=== PATIENT | male | born 1960 | race Caucasian/White ===

== ENCOUNTER 2020-11-04 18:29 | Outpatient (REF) | payer BC, SELFPAY | END 2020-11-04 18:30 | disposition home or self-care (01) | LOC: NCHCN 18:29 | PROVIDERS: PCP Family Medicine; Visit Provider Nurse Practitioner Gerontology | DX: N39.0 Urinary tract infection, site not specified (principal) | CPT/HCPCS: 87077; 87086 ==

== ENCOUNTER 2021-03-20 02:23 | Outpatient (CLI) | payer BC, SELFPAY ==
[2021-03-20 13:15] LABS: Source Nasal/Nares
[2021-03-20 22:12] LABS: COVID-19 PCR Negative (Negative)
== END 2021-03-20 02:24 | disposition home or self-care (01) ==
LOC: LBO 02:23
PROVIDERS: PCP Family Medicine; Visit Provider Urology
DX: Z11.52 Encounter for screening for COVID-19 (principal)
CPT/HCPCS: 87635

== ENCOUNTER 2021-03-23 06:13 | Observation (INO) | payer BC, SELFPAY ==
[2021-03-23] VITALS (13 sets, daily range): BP systolic 76–130; BP diastolic 31–61; PULSE 37–54; RESP 11–18; TEMP 35.2–36.7; O2SAT 96–100; BMI 27.0
--- NOTE | 2021-03-23 06:47 | W.ANESPRE ---
General Info Date of Service Date Performed: 03/23/21 Height: 5 ft 11 in Weight: 88 kg Body Mass Index (BMI): 27.0 Surgical Procedure: Operation Date: 03/23/21 07:40 Proposed Procedures Side Surgeon p Transurethral Resection Prostate Jude Balderas MD Meds Allergies and Home Medications Allergies Allergy/AdvReac Type Severity Reaction Status Date / Time No Known Allergies Allergy Unverified 03/23/21 07:08 Home Medication Medication Instructions Recorded atorvastatin 20 mg tablet 20 mg PO DAILY 09/30/20 finasteride 5 mg tablet 5 mg PO DAILY 09/30/20 tamsulosin 0.4 mg capsule 0.4 mg PO QHS #30 cap 10/16/20 Current Visit Medications: Current Medications Generic Name Dose Route Start Last Admin Trade Name Freq PRN Reason Stop Dose Admin Ringer's Solution 1,000 mls @ 80 mls/hr 03/23/21 06:00 IV 04/19/21 23:59 INFUSION SINTIA Cefazolin Sodium/Dextrose 2 gm in 50 mls @ 100 mls/hr 03/23/21 06:00 Ancef Duplex IVPB 03/23/21 16:00 PREOP SINTIA IV Miscellaneous Supplies 1 each 03/23/21 06:00 Iv Access IV 04/19/21 23:59 DIRECTED SINTIA Sodium Chloride 0 ml 03/23/21 06:00 Normal Saline Flush 10 Ml Syr IV 04/19/21 23:59 PRN PRN Sodium Chloride 0 ml 03/23/21 06:00 Normal Saline 10 Ml Vial IJ 04/19/21 23:59 DIRECTED PRN Sterile Water 0 ml 03/23/21 06:00 Water,Injection,Sterile 10 Ml Vial IJ 04/19/21 23:59 DIRECTED PRN PFSH Medical History Active Problem List (Updated 03/23/21 @ 06:58 by Jude Balderas MD) Urinary retention (Acute) Medical History (Updated 03/23/21 @ 06:58 by Jude Balderas MD) Anemia Bladder outlet obstruction Elevated PSA Gross hematuria HLD (hyperlipidemia) Hypertension Neurocardiogenic syncope Pt. states this was related to his urine retentikon Renal insufficiency Retinal hemorrhage Stasis dermatitis Weight loss Surgical History Surgical History (Updated 03/23/21 @ 06:23 by Earnestine Marshall) Hx of tonsillectomy Tobacco Smoking/Tobacco Use Status: Never Substance Use Substance use: Never Vital Signs and Lab Results Vital Signs Most Recent Vital Signs in EMR: Most Recent Vital Signs Temp Pulse Resp BP Pulse Ox 36.3 C L 48 L 16 130/48 L 99 03/23/21 06:25 03/23/21 06:25 03/23/21 06:25 03/23/21 06:25 03/23/21 06:25 Lab Results Blood Type / Crossmatch: No Data to Display Complete Blood Count: No Data to Display Complete Metabolic Panel: No Data to Display Liver Function Panel: No Data to Display Coagulation Panel: No Data to Display Cardiac Panel: No Data to Display Arterial Blood Gas: No Data to Display Venous Blood Gas: No Data to Display Pancreas Panel: No Data to Display Thyroid Panel: No Data to Display Infectious Disease: Coronavirus (COVID-19)(PCR) Negative (Negative) 03/20/21 10:50 03/20/21 Coronavirus 2019 Source Nasal/Nares 03/20/21 10:50 03/20/21 Blood Cultures: No Data to Display Toxicology Panel: No Data to Display Anesthesia Assessment and Plan Anesthesia History Personal History: No History of Anesthesia Complications Family History: No Family History of Anesthesia Complications Exercise Tolerance Exercise Tolerance: Metabolic Equivalents<4 Pertinent Negatives Pertinent Negatives: No Symptoms of GERD, No Major Cardiovascular Symptoms or Complaints, No Major Pulmonary Symptoms or Complaints and No History of CVA/TIA Cardiac & Pulmonary Exam Cardiac Exam: Normal S1/S2 Heart Sounds Pulmonary Exam: Clear Bilateral Breath Sounds Implantable Cardiac Device Does patient have a Pacemaker or an ICD?: No Airway Exam Known Difficult Airway: No Mallampati Class: 2 Mouth Opening: Normal (> 3cm) Thyromental Distance: Greater than 3 cm Neck Range of Motion: Full ROM Neck Circumference: Normal Teeth Condition: Normal Dentition ASA Classification ASA Score: ASA 2 Emergency Case?: No NPO Status NPO Status: NPO Clears >2 hours, Solids >8 hours Anesthesia Plan Resuscitation Status: Full Code Anesthesia Technique: General Anesthesia Airway Planned: LMA Monitors Used: Standard Monitors
--- NOTE | 2021-03-23 06:56 | HPE_ITS ---
Date of service: 03/23/21 Time of Service: 06:56 Assessment and Plan Assessment and plan (1) Urinary retention: Status: Acute Assessment and plan: Based on his urodynamic study, his bladder does have some contractility. I am not sure if it is enough contract allow him to void on his own or if he will need to continue with intermittent catheterization. The patient would like to proceed with transurethral resection of the prostate with the hope that he would be able to move away from intermittent catheterization. We discussed potential complications including bleeding/clot retention, infection, urethral injury/stricture and continued need for CIC. History of Present Illness History of Present Illness Chief Complaint: Urinary retention Narrative: This is a 60-year-old gentleman who is referred by Dr. Smalls. The patient was initially identified as having a slightly elevated PSA level. He was then referred to Dr. Miller in [place], [place]. His digital rectal exam demonstrated a diffusely enlarged prostate with no nodules. He did not have a prostate biopsy at that time. He was started on finasteride. He was then found to have an elevated serum creatinine and a palpable abdominal mass. On renal ultrasound, he had bilateral hydronephrosis and over 3 L of urine in his bladder. He was started on intermittent catheterization with a goal of keeping his volumes at 500 cc or less. At first, he was unable to sense that his bladder was full, but he now has some bladder sensation before he catheterizes. 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 He has no history of neurologic injuries. He has no previous history of UTIs, pyelonephritis, prostatitis or epididymitis. He has not had any prior urologic instrumentation or surgeries. He has no known family history of prostate cancer. He had a prostate MRI that showed no areas of concern for clinically significant prostate cancer. His serum creatinine has stabilized around 2. Review of Systems Narrative: No fevers or chills No vision change or dysphasia No diabetes or thyroid No shortness of breath, cough or hemoptysis No chest pain or palpitations No nausea, vomiting, hepatitis, ulcers, jaundice, diarrhea or constipation No seizures, strokes or peripheral neuropathy No bleeding disorders or anemia No gout or arthralgia [facility] Active Problem List (Updated 03/23/21 @ 06:58 by Jude Balderas MD) Urinary retention (Acute) Medical History (Updated 03/23/21 @ 06:58 by Jude Balderas MD) Anemia Bladder outlet obstruction Elevated PSA Gross hematuria HLD (hyperlipidemia) Hypertension Neurocardiogenic syncope Pt. states this was related to his urine retentikon Renal insufficiency Retinal hemorrhage Stasis dermatitis Weight loss Surgical History (Updated 03/23/21 @ 06:23 by Earnestine Marshall) Hx of tonsillectomy Social History Smoking/Tobacco Use Status: Never Smoking risk assessment performed?: Yes Drug use: Never Meds Allergies and Home Medications Allergies Allergy/AdvReac Type Severity Reaction Status Date / Time No Known Allergies Allergy Unverified 03/23/21 07:08 Home Medications Medication Instructions Recorded Confirmed Type atorvastatin 20 mg tablet 20 mg PO DAILY 09/30/20 03/23/21 History finasteride 5 mg tablet 5 mg PO DAILY 09/30/20 03/23/21 History tamsulosin 0.4 mg capsule 0.4 mg PO QHS #30 cap 10/16/20 03/23/21 Rx Exam Const General: cooperative, comfortable and no acute distress Neck Neck: supple Resp Effort & Inspection: normal respiratory effort Auscultation: clear to auscultation bilaterally Cardio Rate: regular rate Rhythm: regular rhythm GI Palpation: soft, no guarding and no masses Neuro General: patient alert, patient awake and patient oriented x3 Results Last Vital Signs Temp 36.3 C L 03/23/21 06:25 Pulse 48 L 03/23/21 06:25 Resp 16 03/23/21 06:25 BP 130/48 L 03/23/21 06:25 Pulse Ox 99 03/23/21 06:25 PAWSS Have you Been Recently Intoxicated or Drunk Within the Last 30 days?: No Have you Ever Experienced Previous Episodes of Alcohol Withdrawal?: No Have you ever Experienced Withdrawal Seizures?: No Have you ever Experienced Delirium Tremens(DT)s?: No Have you ever undergone Alcohol Rehabilitation Treatment (i.e, inpt ot outpatient treatment programs)?: No Have you ever Experienced Blackouts?: No Have you ever Combined Alcohol with other Downers within the last 90 days?: No Have you ever Combined Alcohol with any other Substance of Abuse during the last 90 days?: No Positive Blood Alcohol level on Presentation? [PCS.BAL]: No Evidence of Increased Autonomic Activity (i.e. HR>120, tremor, sweating, agitation, nausea)?: No Result: 0
[2021-03-23] MEDS: Lactated Ringers 1,000 ML 80 ML IV ×2 (07:03→10:05)
[2021-03-23] MEDS: ceFAZolin 2 GM/50 ML BAG IVPB (07:39)
[2021-03-23] MEDS: Lidocaine 2% Jelly 6 ML SYR (07:59)
--- NOTE | 2021-03-23 09:08 | PROST_PTH ---
PATIENT: Sebastian Echevarria LOC: U#:[id number] AGE/SX: 60/M ROOM: [id number] RE03/23/[address]: Jude Balderas MD : 1960 BED: A DIS: 03/24/2021 SPEC #: [id number] RECD: 03/23/21 12:27 STATUS: CHARMAINE REQ #: [id number] CLAUDY: 03/23/21 09:[address]: Jude Balderas DEPT: Surgical Specimen RECD BY: Josee Mcneil ENTERED: 03/23/21 12:28 SP TYPE: PROST OTHR DR: Andrea Smalls Tissues: 1 - PROSTATE CURRETTINGS Procedures: GROSS AND MICRO LEVEL 4 Comments: [id number]
--- NOTE | 2021-03-23 09:31 | ROE_ITS ---
Date of service: 03/23/21 Time of Service: 09:31 Operative Note Operative Note DATE OF PROCEDURE: 03/23/21 PRE-OP DIAGNOSIS: Urinary retention POST-OP DIAGNOSIS: same PROCEDURE: cystoscopy, transurethral resection of prostate with bipolar cautery ANESTHESIA TYPE: Local By Surgeon and General LMA/ETT Refer to Anesthesia Record ESTIMATED BLOOD LOSS: 300 PATHOLOGY: other (prostate chips) COMPLICATIONS: None Patient was transported to: PACU Patient's condition: stable Implants: 22 Bahraini irrigating rae catheter with 30 cc sterile water in balloon Indications: This is a 60-year-old gentleman who initially presented with an elevated serum creatinine and bladder distention. He had a Rae catheter placed and over 3 L of urine was obtained. He has been performing intermittent catheterization in order to keep his catheterized volumes of 500 cc or less. He now has some sensation of when his bladder fills and on urodynamic studies, he was able to generate a detrusor contraction. He presents for transurethral resection of the prostate in the hopes that he would be able to void on his own. Findings: Lateral lobe prostate enlargement with no significant median lobe Procedure Description: The patient was brought to the operating room on 03/23/2021. After successful induction of general anesthesia, he was placed in the dorsal lithotomy position. He was given preoperative IV antibiotics. Genitalia was prepped and draped. 2% Xylocaine jelly was instilled into the urethra. A 24 Bahraini resectoscope sheath was passed through the urethra into the bladder. We used a visual obturator and a 30 degree lens to inspect the urethral mucosa. The pendulous, bulbar and membranous urethra's appeared normal with no strictures. The prostatic urethra showed lateral lobe enlargement and quite a bit of anterior tissue but no significant median lobe. The bladder neck was entered and the bladder mucosa was inspected. The bladder was trabeculated with a few small diverticuli, but no papillary or nodular lesions were seen. Both ureteral orifices were identified. No blood was seen coming from either side. I then used an [employer] resectoscope and bipolar cautery to perform transurethral resection of the prostate from the bladder neck out to the verumontanum. The depth of the resection was down to the prostatic capsule. Toward the completion of the procedure, we switched over to the vaporization button and cauterize the tissue down to the capsule. All resected tissue was evacuated and sent to pathology for permanent section. The bladder was filled with irrigant. The resectoscope was removed. A 22 Frenc h hematuria catheter was passed through the urethra into the bladder. The catheter balloon was inflated with 30 cc of sterile water. Traction was placed on the catheter and hand irrigation was performed until the irrigant became clear. A belladonna and opium suppository was placed rectally. The patient was then taken to the recovery room with continuous bladder irrigation maintained. He tolerated this procedure well with no complications.
[2021-03-23] MEDS: Lactated Ringers 1,000 ML 125 ML IV ×2 (12:04→17:44)
[2021-03-23] MEDS: ceFAZolin 1 GM/50 ML BAG IVPB ×2 (12:16→20:07)
--- NOTE | 2021-03-23 14:20 | W.ANESPOSTOP ---
Postoperative Evaluation Date, Time and Location Date Performed: 03/23/21 Time Performed: 14:22 Patient Location: Med/Surg Vital Signs Most Recent Imported Vital Signs: Most Recent Vital Signs Temp Pulse Resp BP Pulse Ox 35.9 C L 39 L 16 104/61 98 03/23/21 11:30 03/23/21 11:30 03/23/21 11:30 03/23/21 11:30 03/23/21 11:30 Pain Score Most Recent Pain Score: Most Recent Pain Score Pain Level 0 03/23/21 11:30 Assessment Mental Status: Awake (Alert & Oriented to Patient Baseline) Airway and Respiratory Function: Patent airway with normal (patient baseline) respiratory exam Cardiovascular Function: Hemodynamically Stable Hydration Status: Adequately Hydrated Nausea & Vomiting: No Nausea or Vomiting Pain: Pt. Denies Any Pain Peripheral Nerve Block: Patient did not receive a nerve block
[2021-03-23] MEDS: Ondansetron 4 MG/2 ML VIAL IVP (20:13)
[2021-03-23] MEDS: traMADol 50 MG TAB PO (20:44)
[2021-03-23 21:11] LABS: Absolute Basophil Count 0.03 10^3/uL (0.0-0.2); Absolute Eosinophil Count 0.03 10^3/uL (0.0-0.7); Absolute Monocyte Count 0.61 10^3/uL (0.1-0.8); Absolute Neutrophil Count 13.76 10^3/uL (1.2-6.7); Basophils % 0.2; Eosinophils % 0.2; HGB 12.4 g/dL (13.5-17.5); Immature Grans % 0.6; Lymphocytes % 11.9; MCH 28.5 pg (27.0-33.0); MCHC 32.6 % (32.0-36.0); MCV 87.4 fL (80-95); MPV 9.8 fL (8.0-11.0); Monocytes % 3.7; Neutrophils % 83.4; Nucleated RBC 0 %; Platelet Count 237 10^3/uL (130-400); RBC 4.35 10^6/uL (4.36-5.78); RDW 12.7 % (11.8-14.1); RDW-SD 40.5 fL
[2021-03-23 21:13] LABS: Absolute Lymphocyte Count 1.96 10^3/uL (1.2-3.4)
[2021-03-23] MEDS: Tamsulosin 0.4 MG CAPCR PO (22:36)
[2021-03-24] MEDS: Lactated Ringers 1,000 ML 125 ML IV (02:21)
[2021-03-24] MEDS: ceFAZolin 1 GM/50 ML BAG IVPB (04:01)
[2021-03-24 07:16] LABS: HCT 32.4 % (40.0-50.0); MCH 29.3 pg (27.0-33.0); MCV 86.2 fL (80-95); MPV 10.1 fL (8.0-11.0); Platelet Count 191 10^3/uL (130-400); RBC 3.76 10^6/uL (4.36-5.78); RDW 12.8 % (11.8-14.1); WBC 17.34 10^3/uL (4.4-10.8)
[2021-03-24 07:24] LABS: Anion Gap 9.2 mmol/L (3-11); BUN 37 mg/dL (7-18); CO2 24.8 mmol/L (21.0-32.0); CREATININE 2.2 mg/dL (0.70-1.30); Chloride 102 mmol/L (98-107); Estimated GFR 30.79 (mL/min/1.73m2); Glucose 156 mg/dL (74-106); Potassium 4.7 mmol/L (3.5-5.1); Sodium 136 mmol/L (136-145)
[2021-03-24] MEDS: Finasteride 5 MG TAB PO (07:52)
[2021-03-24] MEDS: Atorvastatin 20 MG TAB PO (07:52)
--- NOTE | 2021-03-24 07:53 | PGE_ITS ---
Date of Service Date of service: 03/24/21 Time of Service: 07:53 Assessment and Plan Assessment and plan (1) Urinary retention: Status: Acute Assessment and plan: We will attempt to stop his bladder irrigation and have him get up and around with his catheter still in place. If the urine outflow remains transparent, he would likely be able to go home later today. If the urine is not transparent, we will need to restart his bladder irrigation for 1 additional day. Subjective Subjective Interval history since last seen: He one episode of catheter occlusion last evening which seemed to be associated with a vasovagal reaction. His hemoglobin at that time was 12 which is his baseline. He has been able to tolerate oral fluid and food with no nausea or vomiting. He has no fevers or chills Exam Narrative Exam Narrative: He looks comfortable. His vital signs are documented elsewhere. I hand irrigated his catheter and obtained many blood clots. I restarted his bladder irrigation and it is now running clear He is awake and alert His morning labs show a stable hemoglobin and a stable serum creatinine. Objective Last Vital Signs Temp 36.7 C 03/23/21 23:09 Pulse 53 L 03/23/21 23:09 Resp 18 03/23/21 23:09 BP 94/60 L 03/23/21 23:09 Pulse Ox 97 03/23/21 23:09 Laboratory Results - last 24 hr 03/23/21 03/23/21 03/24/21 09:00 21:00 06:47 WBC 16.50 H RBC 4.35 L Hgb 12.4 L Hct 38.0 L MCV 87.4 MCH 28.5 MCHC 32.6 RDW 12.7 Plt Count 237 MPV 9.8 Immature Gran % 0.6 Neutrophils % 83.4 Lymphocytes % 11.9 Monocytes % 3.7 Eosinophils % 0.2 Basophils % 0.2 Nucleated RBC % 0 Absolute Neutrophils 13.76 H Absolute Lymphocytes 1.96 Absolute Monocytes 0.61 Absolute Eosinophils 0.03 Absolute Basophils 0.03 Sodium 136 Potassium 4.7 Chloride 102 Carbon Dioxide 24.8 Anion Gap 9.2 BUN 37 H Creatinine 2.2 H Estimated GFR/1.73 m2 30.79 Glucose 156 H Calcium 8.0 L Patient ABO/Rh O Positive Antibody Screen NEGATIVE 03/24/21 06:47 WBC 17.34 H RBC 3.76 L Hgb 11.0 L Hct 32.4 L MCV 86.2 MCH 29.3 MCHC 34.0 RDW 12.8 Plt Count 191 MPV 10.1 Immature Gran % Neutrophils % Lymphocytes % Monocytes % Eosinophils % Basophils % Nucleated RBC % Absolute Neutrophils Absolute Lymphocytes Absolute Monocytes Absolute Eosinophils Absolute Basophils Sodium Potassium Chloride Carbon Dioxide Anion Gap BUN Creatinine Estimated GFR/1.73 m2 Glucose Calcium Patient ABO/Rh Antibody Screen PAWSS Have you Been Recently Intoxicated or Drunk Within the Last 30 days?: No Have you Ever Experienced Previous Episodes of Alcohol Withdrawal?: No Have you ever Experienced Withdrawal Seizures?: No Have you ever Experienced Delirium Tremens(DT)s?: No Have you ever undergone Alcohol Rehabilitation Treatment (i.e, inpt ot outpatient treatment programs)?: No Have you ever Experienced Blackouts?: No Have you ever Combined Alcohol with other Downers within the last 90 days?: No Have you ever Combined Alcohol with any other Substance of Abuse during the last 90 days?: No Positive Blood Alcohol level on Presentation? [PCS.BAL]: No Evidence of Increased Autonomic Activity (i.e. HR>120, tremor, sweating, agitat ion, nausea)?: No Result: 0
[2021-03-24 08:15] VITALS: BP 105/67; PULSE 57; RESP 18; TEMP 36; O2SAT 97
--- NOTE | 2021-03-24 08:55 | DSE_ITS ---
Date of service: 03/24/21 Time of Service: 12:33 DS: Diagnosis Discharge Diagnosis (1) Urinary retention: Status: Acute Discharge Plan Disposition Patient Disposition: HOME Condition: Stable Discharge Details Reason For Visit: Urinary Retention Admit Date/Time: 03/23/21 06:13 Admit Provider: Jude Balderas Attending Provider: Jude Balderas Primary Care Provider: Andrea Smalls Hospital Course Hospital Course: The patient was admitted to into the operating room on 03/23/2021. He underwent transurethral resection of the prostate. Overnight, he was maintained with continuous bladder irrigation. He did have an episode of catheter occlusion which resulted in a vasovagal reaction. On postoperative day #1, I was able to hand irrigate multiple blood clots in the catheter flowed freely. The patient has been instructed in hand irrigation techniques at home in case he develops a clot. By postoperative day #1, his vital signs were stable. His hemoglobin and serum creatinine were stable as well. He was having some orthostatic hypotension, so we discontinued his tamsulosin. Home Meds and New Rx's Prescriptions: New cephalexin 500 mg capsule 500 mg PO QHS Qty: 5 RF: 0 Discontinued tamsulosin 0.4 mg capsule 0.4 mg PO QHS Qty: 30 RF: 12 No Action finasteride 5 mg tablet 5 mg PO DAILY RF: 0 atorvastatin 20 mg tablet 20 mg PO DAILY RF: 0 Discharge Instructions Additional Instructions: Catheter to leg bag - catheter plug to irrigation port Followup 3 to 7 days for catheter removal additional F/U appt 2 weeks to review surgical pathology and to do bladder scan Instruct patient to hand irrigate rae on prn basis (please supply him with irrigation tray and irrigation fluid at time of discharge) Activity:: no lifting over 10 pounds Equipment/Supplies:: rae to leg bag Diet:: As Tolerated Discharge Orders Discharge Orders: Discharge Order (Routine); Ordered 03/24/21 Ordered By: Jude Balderas DS: Summary Time Spent with Patient providing and/or coordinating discharge services: Less than 30 minutes Status at Discharge Functional status at discharge: independent ambulation Overall status at discharge: patient is back to baseline Mental Status: mental status grossly normal Speech and Movement: speech and movement normal Mood: congruent mood Affect: normal affect Exam Psych Mental Status: mental status grossly normal Speech and Movement: speech and movement normal Mood: congruent mood Affect: normal affect DS: Data Vitals/I&O Vitals and I&O: Vital Signs Temperature 36.0 C L 03/24/21 08:15 Temperature Source Tympanic 03/24/21 08:15 Pulse 57 L 03/24/21 08:15 Pulse Rhythm Regular 03/24/21 07:20 Respiratory Rate 18 03/24/21 08:15 Respiratory Effort Non-Labored 03/24/21 07:20 Respiratory Depth Normal 03/24/21 07:20 Respiratory Pattern Normal 03/24/21 07:20 Blood Pressure 105/67 03/24/21 08:15 Pulse Oximetry 97 03/24/21 08:15 Respiratory End-tidal CO2 36 03/23/21 10:30 Oxygen Delivery Method Room Air 03/24/21 08:15 Oxygen Flow Rate 0 03/24/21 08:15 Pain Level 0 03/24/21 08:15 Comment 03/23/21 11:30 Intake & Output 03/23/21 03/23/21 03/24/21 11:59 23:59 11:59 Intake Total 828.667 / 9146.196 4059.333 / 5252.638 7925.75 / 1793.75 Output Total 300 / 300 Balance 528.667 / 6497.395 2215.333 / 5554.948 2416.75 / 1793.75 Weight 88 kg Intake: IV 808.667 / 1617.000 808.333 / 9470.686 3762.75 / 1793.75 Oral 20 / 260 240 / 260 Output: Estimated Blood Loss 300 / 300 Other: Urine Color Dark Red Dark Red [place] Urine Appearance Hematuria Hematuria Hematuria Clots Comment patient is stating that he has extreme pain and pressure, no flow noted even after hand irrigation, balloon as deflated catheter advanced and ba llon inflated. hand irrgation was done small clots retrieve.flow noted- [place] color. Patient reports that he just moved around, which caused the redness in the urine. Emesis Description None Data Completed and Pending Labs on day of discharge: Labs from last 24 hours 03/24/21 03/24/21 03/23/21 06:47 06:47 21:00 WBC 17.34 H RBC 3.76 L Hgb 11.0 L Hct 32.4 L MCV 86.2 MCH 29.3 MCHC 34.0 RDW 12.8 Plt Count 191 MPV 10.1 Immature Gran % Neutrophils % Lymphocytes % Monocytes % Eosinophils % Basophils % Nucleated RBC % Absolute Neutrophils Absolute Lymphocytes Absolute Monocytes Absolute Eosinophils Absolute Basophils Sodium 136 Potassium 4.7 Chloride 102 Carbon Dioxide 24.8 Anion Gap 9.2 BUN 37 H Creatinine 2.2 H Estimated GFR/1.73 m2 30.79 Glucose 156 H Calcium 8.0 L Patient ABO/Rh O Positive Antibody Screen NEGATIVE 03/23/21 09:00 WBC 16.50 H RBC 4.35 L Hgb 12.4 L Hct 38.0 L MCV 87.4 MCH 28.5 MCHC 32.6 RDW 12.7 Plt Count 237 MPV 9.8 Immature Gran % 0.6 Neutrophils % 83.4 Lymphocytes % 11.9 Monocytes % 3.7 Eosinophils % 0.2 Basophils % 0.2 Nucleated RBC % 0 Absolute Neutrophils 13.76 H Absolute Lymphocytes 1.96 Absolute Monocytes 0.61 Absolute Eosinophils 0.03 Absolute Basophils 0.03 Sodium Potassium Chloride Carbon Dioxide Anion Gap BUN Creatinine Estimated GFR/1.73 m2 Glucose Calcium Patient ABO/Rh Antibody Screen PFSH Active Problem List (Updated 03/23/21 @ 06:58 by Jude Balderas MD) Urinary retention (Acute) Medical History (Updated 03/23/21 @ 06:58 by Jude Balderas MD) Anemia Bladder outlet obstruction Elevated PSA Gross hematuria HLD (hyperlipidemia) Hypertension Neurocardiogenic syncope Pt. states this was related to his urine retentikon Renal insufficiency Retinal hemorrhage Stasis dermatitis Weight loss Surgical History (Updated 03/23/21 @ 06:23 by Earnestine Marshall) Hx of tonsillectomy Social History Smoking/Tobacco Use Status: Never Smoking risk assessment performed?: Yes Drug use: Never
--- NOTE | 2021-03-24 08:58 | PDOC.CMIN ---
- If Service Date Differs Date of service: 03/24/21 Time of Service: 08:58 Care Management Initial Assess REASON FOR HOSPITALIZATION:: Urinary retention PAST MEDICAL HISTORY/PAST SURGICAL HISTORY:: Urinary retention (Acute). Anemia. Bladder outlet obstruction. Elevated PSA. Gross hematuria. HLD (hyperlipidemia). Hypertension. Neurocardiogenic syncope. Pt. states this was related to his urine retentikon. Renal insufficiency. Retinal hemorrhage. Stasis dermatitis. Weight loss. Surgical History (Updated 03/23/21 @ 06:23 by Earnestine Marshall). Hx of tonsillectomy PREVIOUS FUNCTIONAL STATUS/SOCIAL/FAMILY SUPPORTS:: Resides in [place], [place] with , Renéudence. Independent at baseline; employed at the [employer] in [place]. CURRENT FUNCTIONAL STATUS:: Sebastian is prepared for discharge. ADVANCE DIRECTIVES:: None on file. CODE STATUS:: Full Code INSURANCE COVERAGE / FINANCIAL ISSUES:: CLAUDIA Lomeli CURRENT HOME/COMMUNITY SERVICES/EQUIPMENT:: None, currently. PRIMARY CARE PHYSICIAN:: Andrea Smalls POTENTIAL DISCHARGE NEEDS:: Utilization review-order change request due to observation stay. PATIENT/FAMILY EDUCATION NEEDS:: Review of discharge instructions, discuss Ask Me Three. ANTICIPATED BARRIERS TO DISCHARGE:: None identified. TRANSPORTATION:: Via private vehicle with his . PLAN:: Sebastian will return home when ready per MD. He will follow up with his PCP and plan of care as prescribed. He will transport via private vehicle with his , [employer].
== END 2021-03-24 14:05 | disposition home or self-care (01) ==
LOC: PDS 06:16 → MS 10:40 → PDS 03-25 09:44 → MS 03-25 09:44
PROVIDERS: Admitting Provider Urology; PCP Family Medicine; Visit Provider Urology
PROC: 0VT08ZZ Resection of Prostate, Via Natural or Artificial Opening Endoscopic (ICD-10-PCS; CPT 52601; principal; 2021-03-23 07:30)
DX: N40.1 Benign prostatic hyperplasia with lower urinary tract symptoms (principal); N34.2 Other urethritis; R33.9 Retention of urine, unspecified; D64.9 Anemia, unspecified; N13.8 Other obstructive and reflux uropathy; R97.20 Elevated prostate specific antigen [PSA]; E78.5 Hyperlipidemia, unspecified; I10 Essential (primary) hypertension; R31.0 Gross hematuria; Z79.899 Other long term (current) drug therapy
CPT/HCPCS: 52601; 36415; 80048; 85027; 86850; 86900; 86901; 88305; 85025; G0378; J0690; J1100; J2001; J2250; J2405